=== PATIENT | female | born 1975 | race Caucasian/White ===

== ENCOUNTER 2017-09-10 11:02 | Day surgery (SDC) | payer OTHER ==
[2017-09-10] MEDS ORDERED: LIDOCAINE 1% 300 MG/30 ML SDV SC ONE (11:07)
--- NOTE | 2017-09-10 11:26 | PDHPUP ---
History & Physical Update H&P update statement: This history and physical update is based on an assessment of the patient which was completed after admission or registration (within 24 hours), but prior to the surgery/procedure. H&P update: H&P reviewed & patient examined, no change in patient's condition since H&P completed
--- NOTE | 2017-09-10 13:03 | EPPROC ---
Electrophysiology Procedure Note: Procedure: LINQ implant Indication: SYncope of unknown etiology Procedure: Parts were prepared and draped. LA given. incision placed. Using usual technique, LINQ implanted. Severo placed. Dry sterile dressing placed. Pt left CVC in stable condition. Conclusion: SUccessful LINQ implant
== END 2017-09-10 13:01 | disposition home or self-care (01) ==
LOC: FCATH 11:02
PROVIDERS: ATTEND Internal Medicine Cardiovascular Disease
PROC: 0JH602Z Insertion of Monitoring Device into Chest Subcutaneous Tissue and Fascia, Open Approach (ICD-10-PCS; principal; 2017-09-10)
DX: R55 Syncope and collapse (principal); R00.1 Bradycardia, unspecified; E03.9 Hypothyroidism, unspecified; E61.1 Iron deficiency
CPT/HCPCS: C1764

== ENCOUNTER 2018-01-02 09:57 | Emergency (ER) | payer OTHER ==
[2018-01-02] MEDS ORDERED: IBUPROFEN 600 MG TAB PO ONE (10:26)
--- NOTE | 2018-01-02 10:31 | EDPHY ---
H & P Stated Complaint: sudden onset right flank pain, no fever Time Seen by Provider: 01/02/18 10:09 HPI/ROS: CHIEF COMPLAINT: Right-sided chest pain History by patient HISTORY OF PRESENT ILLNESS: 42-year-old otherwise healthy woman presents complaining of acute onset right-sided chest pain which began last night while she was out at a brewery. She states that it began suddenly although she cannot state exactly what she was doing it seemed to gradually progress over the evening. He initially it was not severe and then while she was lying in bed last night coughing and became much worse. Pain is dull in nature but becomes pleuritic when she takes a deep breath or coughs. She has had a URI which she says she is getting over except for the persistent cough. She has had no fever. She has had no nausea or vomiting. Symptoms are not related to food. She has been eating without difficulty. She denies any leg pain or swelling. She denies any trauma to the chest or new activities. 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 She had no symptoms at that time. She has a history of a low heart rate and syncope for which she is currently wearing an implantable monitor but has not had a syncopal episode over a year. She does not smoke. She does not use any hormones she has a Mirena IUD. There is no family history or prior history of VTE. She has had no recent immobilization, surgery or long plane rides. 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 Head: normocephalic, atraumatic Eyes: Pupils equal and round, reactive to light, no pallor or injection. Mouth: Mucous membranes moist. Respiratory: Normal, effort, lungs are clear to auscultation. No wheezes, rales or rhonchi but positive egophony on the right. Right lower anterior and lateral chest wall tenderness in the lower ribs, no crepitus or step-off palpated Cardiovascular: Regular rate and rhythm. S1, S2, no murmurs, gallops or rubs appreciated Gastrointestinal: Abdomen is soft and nontender with some mild tenderness in her chest when pressing on her right upper quadrant, no masses, bowel sounds normal. Back: No CVA tenderness, no bony tenderness Neurological: Awake, alert and oriented x 3, no pronator drift, normal gait, no pronator drift Skin: Warm and dry, no rashes. Musculoskeletal: No deformities or tenderness. Extremities: full range of motion, no edema, no tenderness, DP2+ bilat Psychiatric: Patient has normal affect, there is no agitation. Constitutional: Initial Vital Signs Temperature (C) 36.4 C 01/02/18 10:03 Heart Rate 48 L 01/02/18 10:03 Respiratory Rate 16 01/02/18 10:03 Blood Pressure 113/82 H 01/02/18 10:03 O2 Sat (%) 98 01/02/18 10:03 Allergies/Adverse Reactions: No Known Allergies Allergy (Unverified 01/02/18 10:08) Home Medications: Medication Instructions Recorded Ambien 5 mg PO HS 09/10/17 Iron 260 mg PO DAILY 09/10/17 Levothyroxine 75 mcg PO DAILY 09/10/17 Vitamin D3 2,000 iunits PO DAILY 09/10/17 Medical Decision Making - Diagnostics Imaging Results: Imaging Impressions Chest X-Ray 01/02/18 10:26 Impression: No acute abnormality. ED Course/Re-evaluation: 42-year-old woman presents complaining of acute onset pleuritic right-sided chest pain. She is hemodynamically stable, without hypoxia or tachycardia. By the PERC rule she is at low risk for pulmonary embolism and neither D-dimer or further testing for this is indicated. Chest x-ray was obtained which showed no evidence of pneumothorax, pneumonia or rib fracture and the patient was given ibuprofen 600 mg p.o. for pain. The cause for the patient's symptoms are unclear but she is nontoxic-appearing without hypoxia. Patient is noted into the intermittently bradycardic but on review of her old records this is normal for her and she is wearing and loop monitor because of these episodes. - Data Points Medications Given: Discontinued Medications Ibuprofen (Motrin) 600 mg PO EDNOW ONE Stop: 01/02/18 10:27 Last Admin: 01/02/18 10:38 Dose: 600 mg Departure - Departure Disposition: Home, Routine, Self-Care Clinical Impression: Pleuritic chest pain Condition: Good Instructions: Pleurisy (ED), Chest Wall Pain (ED) Additional Instructions: You were seen by Dr. Bushra Valladares today. Your chest x-ray today was normal. The exact cause of her symptoms are unclear but likely related to a recent cold and coughing. Please try ibuprofen 600 mg with meals and at bedtime for pain. Return for any worsening or new concerns including but not limited to difficulty breathing, uncontrolled pain or fever. Referrals: Fatuma Mendoza MD [Primary Care Provider] - As per Instructions
[2018-01-02 11:04] VITALS: BP 110/67; PULSE 47; RESP 18; TEMP 97.9; O2SAT 96
== END 2018-01-02 11:04 | disposition home or self-care (01) ==
LOC: CED 09:57
DX: R07.89 Other chest pain (principal); Z87.891 Personal history of nicotine dependence
CPT/HCPCS: 71046-PO

== ENCOUNTER 2018-01-06 16:01 | Emergency (ER) | payer OTHER ==
[2018-01-06 16:08] VITALS: RESP 16; TEMP 98.1
[2018-01-06] MEDS ORDERED: NS 1,000 ML IV ONE (16:29)
[2018-01-06] MEDS ORDERED: KETOROLAC 30 MG/1 ML SDV IVP ONE (16:29)
--- NOTE | 2018-01-06 16:35 | EDPHY ---
H & P Time Seen by Provider: 01/06/18 16:17 HPI/ROS: HPI Right side pain. 42-year-old female by private vehicle with her . This patient was seen in our emergency department on Wednesday with complaint of right-sided lateral mid thorax pain. She describes the pain as sharp and crampy like. She describes it as worse with movement, coughing and deep breathing. She developed the pain on Wednesday evening. No history of trauma. She has never had this type pain before. She was seen in the emergency department here on Wednesday. She had a chest x-ray done which was negative. She was prescribed ibuprofen and Vicodin. She reports that this has not helped. She reports that she saw a primary care physician yesterday on follow-up for further evaluation of this pain. A CT scan was ordered but not obtained yet. She presents back to the emergency department now complaining of continued pain uncontrolled with ibuprofen and Vicodin. She reports that the pain comes on in waves of intensity. ROS: Constitutional: No fever, no chills. No weakness. Eyes: No discharge. No changes in vision. ENT: No sore throat. No nasal congestion or rhinorrhea. Respiratory: No cough. No shortness of breath. Cardiac: No chest pain, no palpitations. Gastrointestinal: No abdominal pain, no vomiting, no diarrhea. Genitourinary: No hematuria. No dysuria or increased frequency with urination. Musculoskeletal: As above. No back pain. No neck pain. No myalgias or arthralgias. Skin: No rashes. Neurological: No headache. No focal weakness or altered sensation. Past medical history: She has a history of bradycardia. She is currently being managed by Dr. Cai. Recent history of an upper respiratory infection. Social history: Nonsmoker. Drinks alcohol socially. Here with her . Physical Exam: General Appearance: Alert, she appears uncomfortable. This patient is responding to questions appropriately and in full sentences. This patient appears well-hydrated and well-nourished. Eyes: Pupils equal and round no pallor or injection. No lid edema, erythema or injection. Respiratory: There are no retractions, lungs are clear to auscultation with good air movement bilaterally. Cardiovascular: Regular rate and rhythm. No murmur. Gastrointestinal: Abdomen is soft and nontender, no masses, bowel sounds normal. No focal tenderness at McBurney's point. No Henson sign. Neurological: Motor sensory function is grossly intact. Cranial nerves are normal. Gait is normal. Skin: Warm and dry, no rashes. Musculoskeletal: Neck is supple and nontender. Area of her pain described as posterior axillary line at the subcostal margin on the right side. There is no rash appreciated. No edema, erythema, ecchymosis or other soft tissue changes to this area. On palpation of the area the pain is reproduced at a low level. Extremities are symmetrical. All joints range without pain or impingement. Psychiatric: No agitation. No depression. Database: EKG: Imaging: CT scan of abdomen and pelvis without contrast: No evidence of kidney stone. Constipation noted. The appendix is visualized and has some calcifications but is otherwise normal. The gallbladder appears unremarkable. The IUD appears okay. 7 mm left lingular nodule noted incidentally. Lung bases are otherwise normal. Results were discussed with staff radiologist Dr. Quinn Gallagher. Procedures: Emergency department course: IV was placed. She was placed on a monitor. Vital signs reviewed and are normal. She was started on IV normal saline with 1 L to be given over the next hour. She has no contraindications to NSAIDs. She was given 30 mg of IV Toradol for pain. She consents to CT imaging to evaluate for possible renal stone. 6:00 p.m., patient re-evaluated. Resting comfortably at this time. She appears comfortable. She states that the pain medication helps some. I discussed the results of her CT scan and blood work as well as urinalysis. The differential diagnosis was reviewed with her and her . At this time we will treat her for constipation. I will initially give her magnesium citrate. I will also write her a prescription for a 1/2 prep of GoLYTELY if she needs further treatment for constipation. She feels comfortable going home and I feel she is safe for discharge. She will follow up with her primary care physician tomorrow for re-evaluation. Return to emergency department precautions were thoroughly reviewed with her and her . All of their questions were answered. The patient was discharged in good condition. Differential Diagnosis: The differential diagnosis on this patient includes but is not limited to constipation, kidney stone, pulmonary embolism, biliary colic, pneumonia, colitis, musculoskeletal pain. This represents a partial list of diagnoses considered. These considerations are based on history, physical exam, past history, reassessment and diagnostic testing. Smoking Status: Former smoker Constitutional: Initial Vital Signs Temperature (C) 36.7 C 01/06/18 16:03 Heart Rate 42 L 01/06/18 16:03 Respiratory Rate 16 01/06/18 16:03 Blood Pressure 101/73 01/06/18 16:03 O2 Sat (%) 100 01/06/18 16:03 O2 Delivery Mode Room Air Allergies/Adverse Reactions: No Known Allergies Allergy (Unverified 01/02/18 10:08) Home Medications: Medication Instructions Recorded Ambien 5 mg PO HS 09/10/17 Iron 260 mg PO DAILY 09/10/17 Levothyroxine 75 mcg PO DAILY 09/10/17 Vitamin D3 2,000 iunits PO DAILY 09/10/17 Peg 3350/Na Sulf,Bicarb,Cl/KCl 2,000 ml PO ONCE 1 Days btl 01/06/18 [Golytely (RX)] Medical Decision Making - Diagnostics Imaging Results: Imaging Impressions Abdomen/Pelvis CT 01/06/18 16:29 Impression: 1. No nephrolithiasis or hydronephrosis. 2. Constipation. 3. Appendicolith without appendicitis. 4. Right lower lobe 7 mm nonspecific noncalcified pulmonary nodule for which follow-up CT chest is recommended in one year to ensure stability. 5. Linear scarring in the left lower lobe near the major fissure. Attention: This CT examination is specifically designed to evaluate patients who are clinically suspected of having acute obstructive uropathy. This examination does not use radiographic contrast, and as such, provides only a limited evaluation of the abdomen, pelvis and retroperitoneum. If there is further clinical suspicion for pathological conditions other than obstructive uropathy, a complete CT evaluation of the abdomen and pelvis utilizing intravenous, oral, and rectal contrast should be considered. [employer] RECOMMENDATIONS For Follow Up and Management of Solid Nodules Smaller Than [address] Low Risk Patients (minimal or absent history of smoking and of other known risk factors) Less than 6 mm------no follow up required, unless upper lobes then follow up at 12 months 6-8 mm -------initial follow up CT at 6-12 months, then at 18-24 months if no change >8 mm -------Consider follow up CT at around 3, 9, and 24 months, dynamic contrast-enhanced CT, PET, and/or biopsy. High Risk Patients (history of smoking or of other known risk factors) Less than 6 mm------follow up CT at 12 months; if unchanged, no further follow up 6-8 mm ------ initial follow up CT at 6-12 months, then at 18-24 months if no change >8 mm ------ Consider follow up CT at around 3, 9, and 24 months, dynamic contrast-enhanced CT, PET, and/or biopsy. Note: Nonsolid (groundglass) or partially solid nodules will require a longer follow up to exclude indolent adenocarcinoma. Findings and recommendations discussed with Emergency Department physician, Nicholas Loza MD at 1750 hour, 01/06/2018. Final report concurs with initial preliminary interpretation. A test result has been communicated to a licensed care provider and documented in the [facility] Critical Result system on 01/06/2018 17:54, Message ID [id number]. - Data Points Laboratory Results: Laboratory Results 01/06/18 16:50 01/06/18 16:50 01/06/18 01/06/18 01/06/18 16:50 16:50 16:50 WBC RBC Hgb Hct MCV MCH MCHC RDW Plt Count MPV Neut % (Auto) Lymph % (Auto) Elk % (Auto) Eos % (Auto) Baso % (Auto) Nucleat RBC Rel Count Absolute Neuts (auto) Absolute Lymphs (auto) Absolute Monos (auto) Absolute Eos (auto) Absolute Basos (auto) Absolute Nucleated RBC Immature Gran % Immature Gran # D-Dimer 0.27 ug/mLFEU ug/mLFEU (0.00-0.50) Sodium 143 mEq/L mEq/L (135-145) Potassium 3.9 mEq/L mEq/L (3.5-5.2) Chloride 100 mEq/L mEq/L (97-110) Carbon Dioxide 28 mEq/l mEq/l (22-31) Anion Gap 15 mEq/L mEq/L (8-16) BUN 13 mg/dL mg/dL (7-23) Creatinine 0.7 mg/dL mg/dL (0.6-1.0) Estimated GFR > 60 Glucose 79 mg/dL mg/dL (70-100) Calcium 9.8 mg/dL mg/dL (8.5-10.4) Total Bilirubin 0.4 mg/dL mg/dL (0.1-1.4) Conjugated Bilirubin 0.0 mg/dL mg/dL (0.0-0.5) Unconjugated Bilirubin 0.4 mg/dL mg/dL (0.0-1.1) AST 39 IU/L IU/L (14-46) ALT 37 IU/L IU/L (9-52) Alkaline Phosphatase 90 IU/L IU/L (38-126) Total Protein 7.1 g/dL g/dL (6.3-8.2) Albumin 4.1 g/dL g/dL (3.5-5.0) Lipase 68 IU/L IU/L (23-300) Beta HCG, Qual NEGATIVE Urine Color Urine Appearance Urine pH Ur Specific Preston Urine Protein Urine Ketones Urine Blood Urine Nitrate Urine Bilirubin Urine Urobilinogen Ur Leukocyte Esterase Urine RBC Urine WBC Ur Epithelial Cells Urine Bacteria Urine Glucose 01/06/18 01/06/18 16:50 16:15 WBC 6.03 10^3/uL 10^3/uL (3.80-9.50) RBC 4.59 10^6/uL 10^6/uL (4.18-5.33) Hgb 13.9 g/dL g/dL (12.6-16.3) Hct 40.6 % % (38.0-47.0) MCV 88.5 fL fL (81.5-99.8) MCH 30.3 pg pg (27.9-34.1) MCHC 34.2 g/dL g/dL (32.4-36.7) RDW 13.4 % % (11.5-15.2) Plt Count 271 10^3/uL 10^3/uL (150-400) MPV 9.5 fL fL (8.7-11.7) Neut % (Auto) 65.0 % % (39.3-74.2) Lymph % (Auto) 24.0 % % (15.0-45.0) Elk % (Auto) 6.8 % % (4.5-13.0) Eos % (Auto) 2.8 % % (0.6-7.6) Baso % (Auto) 1.2 % % (0.3-1.7) Nucleat RBC Rel Count 0.0 % % (0.0-0.2) Absolute Neuts (auto) 3.92 10^3/uL 10^3/uL (1.70-6.50) Absolute Lymphs (auto) 1.45 10^3/uL 10^3/uL (1.00-3.00) Absolute Monos (auto) 0.41 10^3/uL 10^3/uL (0.30-0.80) Absolute Eos (auto) 0.17 10^3/uL 10^3/uL (0.03-0.40) Absolute Basos (auto) 0.07 10^3/uL 10^3/uL (0.02-0.10) Absolute Nucleated RBC 0.00 10^3/uL 10^3/uL (0-0.01) Immature Gran % 0.2 % % (0.0-1.1) Immature Gran # 0.01 10^3/uL 10^3/uL (0.00-0.10) D-Dimer Sodium Potassium Chloride Carbon Dioxide Anion Gap BUN Creatinine Estimated GFR Glucose Calcium Total Bilirubin Conjugated Bilirubin Unconjugated Bilirubin AST ALT Alkaline Phosphatase Total Protein Albumin Lipase Beta HCG, Qual Urine Color YELLOW Urine Appearance CLEAR Urine pH 6.5 (5.0-7.5) Ur Specific Preston <= 1.005 (1.002-1.030) Urine Protein NEGATIVE (NEGATIVE) Urine Ketones NEGATIVE (NEGATIVE) Urine Blood NEGATIVE (NEGATIVE) Urine Nitrate NEGATIVE (NEGATIVE) Urine Bilirubin NEGATIVE (NEGATIVE) Urine Urobilinogen 0.2 EU EU (0.2-1.0) Ur Leukocyte Esterase TRACE H (NEGATIVE) Urine RBC 1-3 /hpf /hpf (0-3) Urine WBC 1-3 /hpf /hpf (0-3) Ur Epithelial Cells 1+ /lpf /lpf (NONE-1+) Urine Bacteria TRACE /hpf H /hpf (NONE SEEN) Urine Glucose NEGATIVE (NEGATIVE) Medications Given: Discontinued Medications Sodium Chloride (Ns) 1,000 mls @ 0 mls/hr IV EDNOW ONE; Wide Open PRN Reason: Protocol Stop: 01/06/18 16:30 Last Admin: 01/06/18 16:53 Dose: 1,000 mls Ketorolac Tromethamine (Toradol) 30 mg IVP EDNOW ONE Stop: 01/06/18 16:30 Last Admin: 01/06/18 16:54 Dose: 30 mg Departure - Departure Disposition: Home, Routine, Self-Care Clinical Impression: Right flank pain, Constipation Condition: Good Instructions: Flank Pain (ED), Constipation (ED), High Fiber Diet (ED) Additional Instructions: Read and follow provided instructions. Follow-up with your primary care physician tomorrow as discussed for re- evaluation. Drink magnesium citrate when you get home for treatment of constipation. I will also write your prescription for GoLYTELY should you require additional treatment of constipation as discussed. You can't continue taking her pain medication as prescribed. 7 mm left lingular nodule noted incidentally on CT. You should get a follow-up CT in 6 months to reassess this. This can be arranged through your primary care physician. Return to the emergency department for worsening pain, fever, difficulty breathing, vomiting, blood in your stool or other serious concerns. Referrals: NONE *PRIMARY CARE P,. [Primary Care Provider] - As per Instructions Prescriptions: Peg 3350/Na Sulf,Bicarb,Cl/KCl [Golytely (RX)] 2,000 ml PO ONCE 1 Days btl
[2018-01-06 17:14] LABS: PLATELET COUNT 271 10^3/uL (150-400)
[2018-01-06] MEDS ORDERED: MAGNESIUM CITRATE 300 ML BOTTLE PO ONE (18:06)
[2018-01-06 18:41] VITALS: BP 108/61; PULSE 48; O2SAT 99
== END 2018-01-06 18:49 | disposition home or self-care (01) ==
LOC: CED 16:01
DX: K59.00 Constipation, unspecified (principal); E86.9 Volume depletion, unspecified; Z87.891 Personal history of nicotine dependence
CPT/HCPCS: 74176-PO; 80048-PO; 80076-PO; 81003-PO; 81015-PO; 83690-PO; 84703-PO; 85025-PO; 85378-PO; 96374; J1885

== ENCOUNTER 2018-01-08 01:13 | Emergency (ER) | payer OTHER ==
[2018-01-08 01:20] VITALS: TEMP 98.2
[2018-01-08] MEDS ORDERED: NS 1,000 ML IV ONE (02:00)
[2018-01-08] MEDS ORDERED: IOPAMIDOL (ISOVUE 370) 100 ML BTL IV ONE (02:06)
[2018-01-08 02:36] LABS: PLATELET COUNT 275 10^3/uL (150-400)
--- NOTE | 2018-01-08 02:38 | EDPHY ---
H & P Stated Complaint: RIGHT SIDE PAIN STILL, WORSE, "MOVING UP MY SIDE", 3RD VISIT Time Seen by Provider: 01/08/18 01:44 HPI/ROS: Chief Complaint: Right chest pain HPI: 42-year-old woman developed pain in the right side of her chest 6 days ago. Pain is been worse with inspiration. Movement. She was initially seen at [facility] emergency department had a negative chest x-ray at that time. She was diagnosed with chest wall pain. Pain is been getting progressively worse. Is not going up into armpit. It is worse when she moves. Worse when she takes a deep breath. Also with coughing. She was seen again at [facility] and had a CT scan her abdomen noncontrast look for kidney stone. That was negative with the exception of constipation. Gallbladder was normal. Patient is having persistent worsening pain in the right side her chest. Worse when she takes deep breath. Worse with cough. Worse with movement. No fevers or chills. Cough is nonproductive. No nausea or vomiting. No abdominal pain. She did take magnesium citrate and GoLYTELY and has had clear running stools. ROS: 10 point Review of Systems is negative except as noted in the HPI. Family History: non-contributory Physical Exam: Gen: Awake, Alert, No Distress HEENT: Nose: no rhinorrhea Eyes: PERRLA, EOMI Mouth: Moist mucosa Neck: Supple, no JVD Chest: Reproducible right anterior axillary line tenderness, lungs clear to auscultation Heart: S1, S2 normal, no murmur Abd: Soft, non-tender, no guarding Back: no CVA tenderness, no midline tenderness Ext: no edema, non-tender Skin: no rash Neuro: CN II-XII intact, Sensation grossly intact, Strength 5/5 in bilateral upper and lower extremities - Personal History LMP (Females 10-55): Extended Cycle BCP/Inj Current Tetanus/Diphtheria Vaccine: Unsure - Medical/Surgical History Hx Asthma: No Hx Chronic Respiratory Disease: No Hx Diabetes: No Hx Cardiac Disease: Yes Hx Renal Disease: No Hx Cirrhosis: No Hx Alcoholism: No Hx HIV/AIDS: No Hx Splenectomy or Spleen Trauma: No Other PMH: implanted cardiac tech left upper chest, hx of syncopal events, wayne cardia, 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, FOOT SURG - Social History Smoking Status: Former smoker Constitutional: Initial Vital Signs Temperature (C) 36.8 C 01/08/18 01:16 Heart Rate 46 L 01/08/18 01:16 Respiratory Rate 20 01/08/18 01:16 Blood Pressure 128/83 H 01/08/18 01:16 O2 Sat (%) 99 01/08/18 01:16 O2 Delivery Mode Room Air Allergies/Adverse Reactions: No Known Allergies Allergy (Unverified 01/08/18 01:15) Home Medications: Medication Instructions Recorded Ambien 5 mg PO HS 09/10/17 Iron 260 mg PO DAILY 09/10/17 Levothyroxine 75 mcg PO DAILY 09/10/17 Vitamin D3 2,000 iunits PO DAILY 09/10/17 Peg 3350/Na Sulf,Bicarb,Cl/KCl 2,000 ml PO ONCE 1 Days btl 01/06/18 [Golytely (RX)] Hydrocodone/Acetaminophen 1 - 2 each PO Q4-6PRN PRN #10 01/08/18 [Hydrocodon-Acetaminophen 5-325] tablet Medical Decision Making - Diagnostics Imaging Results: CT scan of the chest shows no PE, no pneumothorax. There is a 7 mm right lower lobe nodule which will need to be followed up in 6 months. ED Course/Re-evaluation: 42-year-old woman with myself chest wall pain for a week. She is is are [address] angiogram of her chest here is negative for any acute process. Symptoms are consistent with costochondritis. Patient has not taken any anti-inflammatories for the last 5 days. I will give her Toradol here. A Lidoderm patch and reassess. Patient is feeling improved. Will discharge with ibuprofen, Lidoderm patch, and will years and Vicodin for breakthrough pain. She will follow up with her physician in 3-4 days for further evaluation. Return for any worsening. No evidence of acute intrathoracic process at this time. She does have a pulmonary nodule which will need to be followed up as an outpatient. - Data Points Laboratory Results: Laboratory Results 01/08/18 02:15 01/08/18 02:15 01/08/18 01/08/18 02:15 02:15 WBC 5.56 10^3/uL 10^3/uL (3.80-9.50) RBC 4.74 10^6/uL 10^6/uL (4.18-5.33) Hgb 14.6 g/dL g/dL (12.6-16.3) Hct 43.2 % % (38.0-47.0) MCV 91.1 fL fL (81.5-99.8) MCH 30.8 pg pg (27.9-34.1) MCHC 33.8 g/dL g/dL (32.4-36.7) RDW 13.4 % % (11.5-15.2) Plt Count 275 10^3/uL 10^3/uL (150-400) MPV 9.8 fL fL (8.7-11.7) Neut % (Auto) 53.5 % % (39.3-74.2) Lymph % (Auto) 32.2 % % (15.0-45.0) Tripp % (Auto) 8.1 % % (4.5-13.0) Eos % (Auto) 4.7 % % (0.6-7.6) Baso % (Auto) 1.3 % % (0.3-1.7) Nucleat RBC Rel Count 0.0 % % (0.0-0.2) Absolute Neuts (auto) 2.98 10^3/uL 10^3/uL (1.70-6.50) Absolute Lymphs (auto) 1.79 10^3/uL 10^3/uL (1.00-3.00) Absolute Monos (auto) 0.45 10^3/uL 10^3/uL (0.30-0.80) Absolute Eos (auto) 0.26 10^3/uL 10^3/uL (0.03-0.40) Absolute Basos (auto) 0.07 10^3/uL 10^3/uL (0.02-0.10) Absolute Nucleated RBC 0.00 10^3/uL 10^3/uL (0-0.01) Immature Gran % 0.2 % % (0.0-1.1) Immature Gran # 0.01 10^3/uL 10^3/uL (0.00-0.10) Sodium 144 mEq/L mEq/L (135-145) Potassium 4.1 mEq/L mEq/L (3.5-5.2) Chloride 103 mEq/L mEq/L (97-110) Carbon Dioxide 27 mEq/l mEq/l (22-31) Anion Gap 14 mEq/L mEq/L (8-16) BUN 14 mg/dL mg/dL (7-23) Creatinine 0.8 mg/dL mg/dL (0.6-1.0) Estimated GFR > 60 Glucose 87 mg/dL mg/dL (70-100) Calcium 10.0 mg/dL mg/dL (8.5-10.4) Medications Given: Discontinued Medications Sodium Chloride (Ns) 1,000 mls @ 0 mls/hr IV ONCE ONE; Wide Open PRN Reason: Protocol Stop: 01/08/18 02:01 Last Admin: 01/08/18 02:15 Dose: 1,000 mls Ketorolac Tromethamine (Toradol) 30 mg IVP EDNOW ONE Stop: 01/08/18 03:57 Last Admin: 01/08/18 04:00 Dose: 30 mg Miscellaneous Medication (Icy Hot Lidocaine/Menthol 4%/1% Patch) 1 patch TD EDNOW ONE Stop: 01/08/18 04:15 Last Admin: 01/08/18 04:21 Dose: 1 patch Miscellaneous Medication (Icy Hot Lidocaine/Menthol 4%/1% Patch) 1 patch TD EDNOW ONE Stop: 01/08/18 04:25 Last Admin: 01/08/18 04:27 Dose: 1 patch Morphine Sulfate (Morphine) 4 mg IVP ONCE ONE Stop: 01/08/18 02:01 Last Admin: 01/08/18 02:16 Dose: 4 mg Departure - Departure Disposition: Home, Routine, Self-Care Clinical Impression: Costochondritis Condition: Good Instructions: Costochondritis (ED) Additional Instructions: Take ibuprofen, 600 mg 3 times a day. You may apply a new Lidoderm patch every 24 hr. You may take Vicodin, 1-2 tablets every 4-6 hours for breakthrough pain. Follow up with your primary care physician in 3-4 days for further evaluation. Referrals: Fatuma Mendoza MD [Primary Care Provider] - As per Instructions Prescriptions: Hydrocodone/Acetaminophen [Hydrocodon-Acetaminophen 5-325] 1 - 2 each PO Q4- 6PRN PRN #10 tablet PRN Reason: Pain, Severe
[2018-01-08] MEDS ORDERED: KETOROLAC 30 MG/1 ML SDV ONE (03:55)
[2018-01-08] MEDS ORDERED: KETOROLAC 30 MG/1 ML SDV IVP ONE (03:56)
[2018-01-08] MEDS ORDERED: LIDOCAINE 5% 1 EA PATCH TD ONE (03:57)
[2018-01-08] MEDS ORDERED: LIDOCAINE 4%/MENTHOL 1% PATCH TD ONE ×3 (04:12→04:24)
[2018-01-08 05:35] VITALS: BP 102/55; PULSE 55; RESP 16; O2SAT 96
[2018-01-08] MEDS ORDERED: PATCH REMOVAL 1 EA PATCH TD SCH ×3 (21:00)
== END 2018-01-08 05:35 | disposition home or self-care (01) ==
DX: M94.0 Chondrocostal junction syndrome [Tietze] (principal); E86.9 Volume depletion, unspecified; Z87.891 Personal history of nicotine dependence
CPT/HCPCS: 96374; J1885; J2270; Q9967